=== PATIENT | female | born 2000 | race Two or more races ===

== ENCOUNTER 2023-12-11 09:03 | Emergency (ER) | payer OTHER ==
[2023-12-11 09:15] VITALS: RESP 18; BMI 23.9
[2023-12-11] MEDS ORDERED: ACETAMINOPHEN 500 MG TABLET (FP) PO ONE (10:24)
[2023-12-11] MEDS ORDERED: ACETAMINOPHEN 500 MG TABLET (FP) ONE (11:22)
[2023-12-11 11:52] VITALS: BP 111/74; PULSE 81; TEMP 97.7
== END 2023-12-11 11:54 | disposition home or self-care (01) ==
LOC: JERFT 09:03
DX: R51.9 Headache, unspecified (principal); V43.52XA Car driver injured in collision with other type car in traffic accident, initial encounter; Y92.9 Unspecified place or not applicable
CPT/HCPCS: 71046-TC-FY; 84703; 93005; 93010; 99285-25

== ENCOUNTER 2024-07-30 14:14 | Inpatient (IN) | payer BC, OTHER ==
[2024-07-30 14:33] VITALS: BMI 22.6
[2024-07-30] MEDS: LACTATED RINGERS SOLUTION 1000 ML INFUS.BAG IV ONE (15:31)
[2024-07-30] MEDS ORDERED: ACETAMINOPHEN 1000 MG/100 ML BAG IVPB PRN (15:39)
[2024-07-30] MEDS: SODIUM CHLORIDE 1,000 ML IV SCH (18:12)
[2024-07-30 19:02] LABS: ALBUMIN 4.1 g/dl (3.4-5.0); BILIRUBIN,TOTAL 0.7 mg/dl (0.2-1); CALCIUM 9.3 mg/dl (8.5-10.1); CREATININE 0.6 mg/dl (0.6-1.3); HEMATOCRIT 43.4 % (32.4-45.2); HEMOGLOBIN 14.4 G/dL (10.7-15.3); MCH 29.8 pg (25.7-33.7); MCHC 33.2 g/dl (32.0-36.0); MEAN CELL VOLUME 89.8 fl (80-96); MEAN PLT VOLUME 7.1 fl (7.5-11.1); PLATELET COUNT 534.9 10^3/uL (134-434); POTASSIUM 3.8 mmol/L (3.5-5.1); RBC 4.83 10^6/uL (3.60-5.2); RDW 13.5 % (11.6-15.6); TOT PROT 7.2 g/dl (6.4-8.2); WHITE BLOOD COUNT 9.4 10^3/uL (4.0-10.8)
[2024-07-30 19:40] LABS: ERYTHROCYTE SEDIMENTATION RATE 33 mm/hr (0-20)
[2024-07-30] MEDS: FAMOTIDINE 20 MG/50 ML IVPB 20 MG/50 ML MG IVPB SCH (21:12)
[2024-07-30] MEDS: ONDANSETRON 4 MG/2 ML VIAL IVPB PRN (21:12)
[2024-07-30] MEDS: MELATONIN 5 MG TABLETS PO PRN (22:25)
[2024-08-01 08:29] LABS: HEMATOCRIT 37.8 % (32.4-45.2); HEMOGLOBIN 12.3 G/dL (10.7-15.3); MCHC 32.6 g/dl (32.0-36.0); PLATELET COUNT 498.9 10^3/uL (134-434); RBC 4.25 10^6/uL (3.60-5.2); RDW 13.5 % (11.6-15.6); WHITE BLOOD COUNT 6.2 10^3/uL (4.0-10.8)
[2024-08-01 09:03] LABS: ALBUMIN 3.3 g/dl (3.4-5.0); BILIRUBIN,TOTAL 0.5 mg/dl (0.2-1); CALCIUM 7.9 mg/dl (8.5-10.1); CREATININE 0.6 mg/dl (0.6-1.3); POTASSIUM 3.7 mmol/L (3.5-5.1); TOT PROT 5.5 g/dl (6.4-8.2)
[2024-08-01 09:10] LABS: PLATELET ESTIMATE SLT INCREASE
[2024-08-01] MEDS: ACETAMINOPHEN 325 MG TABLET (FP) PO ONE (22:30)
[2024-08-02 09:06] LABS: BILIRUBIN,TOTAL 0.4 mg/dl (0.2-1); CREATININE 0.6 mg/dl (0.6-1.3); POTASSIUM 3.4 mmol/L (3.5-5.1); TOT PROT 5.1 g/dl (6.4-8.2)
[2024-08-02 09:55] LABS: BASO % 0.6 % (0-2.0); EOS % 1.8 % (0-4.5); HEMATOCRIT 32.2 % (32.4-45.2); HEMOGLOBIN 11.4 GM/dL (10.7-15.3); LYMPH % 33.8 % (8-40); MCH 30.6 pg (25.7-33.7); MCHC 35.3 g/dl (32.0-36.0); MEAN CELL VOLUME 86.6 fl (80-96); MEAN PLT VOLUME 6.9 fl (7.5-11.1); MONO % 9.7 % (3.8-10.2); NEUT % 54.1 % (42.8-82.8); PLATELET COUNT 422 10^3/uL (134-434); RBC 3.72 M/mm3 (3.60-5.2); RDW 12.9 % (11.6-15.6); WHITE BLOOD COUNT 5.6 K/mm3 (4.0-10.0)
[2024-08-02] MEDS ORDERED: BISMUTH SUBSALICYLATE 524 MG/30 ML PO PRN (11:15)
[2024-08-02] MEDS: POTASSIUM CHLORIDE TABS 10 MEQ TABLET.ER (FP) PO ONE (15:46)
[2024-08-02 20:14] VITALS: RESP 18
[2024-08-03] MEDS ORDERED: LOPERAMIDE HCL 2 MG CAPSULE PO PRN (07:30)
[2024-08-03 09:14] LABS: ALBUMIN 3.1 g/dl (3.4-5.0); BILIRUBIN,TOTAL 0.8 mg/dl (0.2-1); CALCIUM 7.9 mg/dl (8.5-10.1); CREATININE 0.5 mg/dl (0.6-1.3); POTASSIUM 3.5 mmol/L (3.5-5.1); TOT PROT 5.2 g/dl (6.4-8.2)
[2024-08-03] MEDS ORDERED: ACETAMINOPHEN 500 MG TABLET (FP) PO PRN (09:29)
[2024-08-03] MEDS: FOLIC ACID INJECTION - 1 MG, THIAMINE HCL 100 MG, MULTIVIT INJECTION ADULT 10 ML in SOD... IVPB ONE (09:39)
[2024-08-03] MEDS: BANATROL PLUS POWDER PACKET PO SCH (09:40)
[2024-08-03 09:52] LABS: BASO % 0.3 % (0-2.0); EOS % 0.4 % (0-4.5); HEMATOCRIT 33.3 % (32.4-45.2); HEMOGLOBIN 11.6 GM/dL (10.7-15.3); LYMPH % 18.8 % (8-40); MCH 30.1 pg (25.7-33.7); MCHC 34.9 g/dl (32.0-36.0); MEAN CELL VOLUME 86.4 fl (80-96); MONO % 8.2 % (3.8-10.2); NEUT % 72.3 % (42.8-82.8); PLATELET COUNT 385 10^3/uL (134-434); RBC 3.86 M/mm3 (3.60-5.2); RDW 12.6 % (11.6-15.6); WHITE BLOOD COUNT 5.8 K/mm3 (4.0-10.0)
[2024-08-03] MEDS: ACETAMINOPHEN 500 MG TABLET (FP) PO PRN (16:32)
[2024-08-03] MEDS ORDERED: PIPERACILLIN/TAZOB 3.375 GM 3.375 GM in DEXTROSE 5%-WATER - 50 ML IVPB SCH (18:00)
[2024-08-03] MEDS: PIPERACILLIN/TAZOB 3.375 GM 3.375 GM in DEXTROSE 5%-WATER - 50 ML IVPB SCH (19:39)
[2024-08-04 09:21] VITALS: BP 96/65; PULSE 81; TEMP 99.1
== END 2024-08-04 14:08 | disposition home or self-care (01) | DRG 392 ==
LOC: FER 14:14 → FM/S 15:23 → OBSVTOIN 08-04 11:00
PROVIDERS: ADMIT Family Medicine; ATTEND Family Medicine
DX: A09 Infectious gastroenteritis and colitis, unspecified (principal); E86.0 Dehydration
CPT/HCPCS: 36415; 71045-TC-FY; 74177-TC; 76705-TC; 80053; 81003; 81015; 83735; 84702; 84703; 85025; 85027; 85651; 86140; 87040; 87045; 87046; 87086; 87186; 87205; 87207; 87209; 87324; 87328; 87329; 87425; 87427; 87449; 87798; 93005; 99285-25; G0378; Q9967